=== PATIENT | male | born 1940 | race Caucasian/White ===

== ENCOUNTER 2019-11-02 08:39 | Inpatient (IN) ==
[2019-11-02 10:56] LABS: Basophils % 0.6 % (0.0-0.8); Eosinophils # 0.2 10*3/uL (0.0-0.87); Eosinophils % 3.5 % (0.00-10.9); Hematocrit 45.3 VOL% (42.0-52.0); Hemoglobin 14.3 GM/DL (14.0-18.0); Immature Granulocytes % 0.4 %; Immature Granulocytes Absolute 0.02 #; Lymphocytes # 1.1 10*3/uL (1.4-4.0); Lymphocytes % 20.6 % (21.2-54.2); Mean Corpuscular HGB Conc 31.6 GM/DL (32-36); Mean Corpuscular Volume 92.6 FL (87-102); Mean Platelet Volume 9.3 FL (9.6-12.0); Monocytes % 9.3 % (1.7-12.7); Neutrophils % 65.6 % (38.7-73.9); Platelet Count 239 T/CUMM (130-400); Red Blood Count 4.89 MC/CUMM (3.8-5.5); Red Cell Distribution Width 13.3 % (9.3-17.3); White Blood Count 5.2 T/CUMM (4-12)
[2019-11-02 11:21] LABS: Albumin 3.5 G/DL (3.4-5.0); Bilirubin,Total 0.6 MG/DL (0.2-1.0); Calcium 9.3 MG/DL (8.5-10.1); Osmolality,Calculated 277.5 MOS/KG (273-304); Total Protein 7.2 G/DL (6.4-8.3)
[2019-11-02 11:50] LABS: PT Patient Result 10.3 SECS (9.8-11.9)
[2019-11-02] MEDS ORDERED: DEXTROSE 10% 250 ML BAG IV PRN (11:57)
[2019-11-02] MEDS ORDERED: GLUCAGON 1 MG VIAL IM PRN (11:57)
[2019-11-02 12:01] LABS: Troponin I < 0.015 NG/ML (0.00-0.045)
[2019-11-02] MEDS ORDERED: ENOXAPARIN 100 MG/ML SYRINGE SUBCUT ONE (12:23)
[2019-11-02] MEDS ORDERED: ENOXAPARIN 80 MG/0.8 ML SYRINGE SUBCUT ONE (12:28)
[2019-11-02] MEDS ORDERED: DIAZEPAM 5 MG TABLET PO ONE (12:36)
[2019-11-02] MEDS ORDERED: MAGNESIUM SULF RIDER 2 GM in PREMIX 1 EACH IV PRN (12:36)
[2019-11-02] MEDS ORDERED: diphenhydrAMINE CAP 25 MG CAPSULE PO ONE (12:36)
[2019-11-02] MEDS ORDERED: POTASSIUM CHLORIDE RIDER 10 MEQ in PREMIX 1 EACH IV PRN (12:36)
[2019-11-02] MEDS ORDERED: ENOXAPARIN 30 MG/0.3 ML SYRINGE IV STA (12:44)
[2019-11-02] MEDS ORDERED: HEPARIN/NACL 0.9% 2 UNITS/ML 1,000 ML IV ONE (12:47)
[2019-11-02] MEDS ORDERED: LIDOCAINE 1%/EPI INJ 20 ML VIAL ONE (12:47)
[2019-11-02] MEDS ORDERED: fentaNYL 100 MCG/2 ML VIAL ONE (12:48)
[2019-11-02] MEDS ORDERED: MIDAZOLAM 2 MG/2 ML VIAL ONE ×2 (12:48→13:19)
[2019-11-02] MEDS ORDERED: SODIUM CHLORIDE 0.9% 1,000 ML IV SCH ×4 (13:00→19:00)
[2019-11-02] MEDS ORDERED: ALTEPLASE 6 MG in SODIUM CHLORIDE 0.9% 120 ML IV SCH ×3 (13:00→14:00)
[2019-11-02] MEDS ORDERED: ENOXAPARIN 60 MG/0.6 ML SYRINGE ONE (13:11)
[2019-11-02] MEDS ORDERED: ONDANSETRON 4 MG/2 ML VIAL IV PRN (13:56)
[2019-11-02] MEDS ORDERED: MEPERIDINE 25 MG/1 ML VIAL IV PRN (13:56)
[2019-11-02] MEDS ORDERED: HEPARIN DRIP 25,000 UNITS/500 ML PREMIX IV SCH ×2 (14:00)
[2019-11-02 14:52] LABS: PT Patient Result 10.9 SECS (9.8-11.9); Partial Thromboplastin Time 39.8 SECS (23.9-33.8)
[2019-11-02] MEDS ORDERED: dilTIAZem Drip 125 MG/125 ML PREMIX IV SCH (15:00)
[2019-11-02] MEDS ORDERED: dilTIAZem Drip 125 MG/125 ML PREMIX IV PRN (15:26)
[2019-11-02] MEDS: ATORVASTATIN 40 MG TABLET PO SCH (20:47)
[2019-11-03 03:27] LABS: Basophils % 0.3 % (0.0-0.8); Eosinophils # 0.2 10*3/uL (0.0-0.87); Eosinophils % 3.7 % (0.00-10.9); Hematocrit 40.1 VOL% (42.0-52.0); Hemoglobin 12.8 GM/DL (14.0-18.0); Immature Granulocytes % 0.2 %; Immature Granulocytes Absolute 0.01 #; Lymphocytes % 16.1 % (21.2-54.2); Mean Corpuscular HGB Conc 31.9 GM/DL (32-36); Mean Corpuscular Volume 91.3 FL (87-102); Mean Platelet Volume 9.8 FL (9.6-12.0); Monocytes % 9.4 % (1.7-12.7); Neutrophils % 70.3 % (38.7-73.9); Platelet Count 207 T/CUMM (130-400); Red Blood Count 4.39 MC/CUMM (3.8-5.5); Red Cell Distribution Width 13.3 % (9.3-17.3)
[2019-11-03 03:41] LABS: Partial Thromboplastin Time 59.4 SECS (23.9-33.8)
[2019-11-03 03:51] LABS: Albumin 2.8 G/DL (3.4-5.0); Bilirubin,Total 0.6 MG/DL (0.2-1.0); Osmolality,Calculated 279.3 MOS/KG (273-304); Risk Ratio 3.68; Thyroid Stimulating Hormone 2.17 uIU/ml (0.358-3.74); Total Protein 5.5 G/DL (6.4-8.3); VLDL CHOLESTEROL 23.2 MG/DL
[2019-11-03] MEDS ORDERED: RIVAROXABAN 15 MG TABLET PO SCH (08:00)
[2019-11-03] MEDS ORDERED: hydroCHLOROthiazide 25 MG TABLET PO SCH (09:00)
[2019-11-03] MEDS ORDERED: CYANOCOBALAMIN 5000 MCG PO SCH (09:00)
[2019-11-03] MEDS ORDERED: ASPIRIN 325 MG TABLET PO SCH (09:00)
[2019-11-03] MEDS: hydroCHLOROthiazide 25 MG TABLET PO SCH (09:02)
[2019-11-03] MEDS: lisinopriL 10 MG TABLET PO SCH (09:02)
[2019-11-03] MEDS: POTASSIUM CHLORIDE 10 MEQ TABLET PO SCH (09:02)
[2019-11-03] MEDS: RIVAROXABAN 15 MG TABLET PO SCH ×2 (09:02→16:57)
[2019-11-03] MEDS: PANTOPRAZOLE 40 MG TABLET PO SCH (09:02)
[2019-11-03 15:44] LABS: Partial Thromboplastin Time 34.2 SECS (23.9-33.8)
[2019-11-03] MEDS: ATORVASTATIN 40 MG TABLET PO SCH (21:13)
[2019-11-03] MEDS: CHLORPHENIRAMINE MALEATE 4 MG PO SCH (22:05)
[2019-11-04 02:07] LABS: Basophils % 0.6 % (0.0-0.8); Eosinophils # 0.3 10*3/uL (0.0-0.87); Eosinophils % 4.7 % (0.00-10.9); Hematocrit 42.4 VOL% (42.0-52.0); Hemoglobin 13.7 GM/DL (14.0-18.0); Immature Granulocytes % 0.4 %; Immature Granulocytes Absolute 0.02 #; Lymphocytes % 18.5 % (21.2-54.2); Mean Corpuscular HGB Conc 32.3 GM/DL (32-36); Mean Corpuscular Volume 90.4 FL (87-102); Mean Platelet Volume 9.5 FL (9.6-12.0); Monocytes % 8.4 % (1.7-12.7); Neutrophils % 67.4 % (38.7-73.9); Platelet Count 215 T/CUMM (130-400); Red Blood Count 4.69 MC/CUMM (3.8-5.5); Red Cell Distribution Width 13.2 % (9.3-17.3); White Blood Count 5.3 T/CUMM (4-12)
[2019-11-04 02:44] LABS: Albumin 3.2 G/DL (3.4-5.0); Bilirubin,Total 0.5 MG/DL (0.2-1.0); Calcium 8.7 MG/DL (8.5-10.1); Osmolality,Calculated 280.3 MOS/KG (273-304); Total Protein 6.1 G/DL (6.4-8.3)
[2019-11-04] MEDS: POTASSIUM CHLORIDE 10 MEQ TABLET PO SCH (09:29)
[2019-11-04] MEDS: lisinopriL 10 MG TABLET PO SCH (09:30)
[2019-11-04] MEDS: PANTOPRAZOLE 40 MG TABLET PO SCH (09:30)
[2019-11-04] MEDS: hydroCHLOROthiazide 25 MG TABLET PO SCH (09:30)
[2019-11-04] MEDS: CHLORPHENIRAMINE MALEATE 4 MG PO SCH (09:31)
[2019-11-04] MEDS: RIVAROXABAN 15 MG TABLET PO SCH (09:32)
[2019-11-04 12:03] VITALS: BP 142/69
== END 2019-11-04 12:49 | disposition home or self-care (01) | DRG 176 ==
LOC: N.ED 08:39 → SUATTDRO 12:15 → N.ICU 13:05 → N.TELES 11-03 14:40
PROVIDERS: ADMIT Internal Medicine; ATTEND Hospitalist